=== PATIENT | male | born 1950 | race Caucasian/White ===

== ENCOUNTER 2021-03-21 04:47 | Day surgery (SDC) | payer MEDICARE, OTHER ==
[2021-03-17 19:28] VITALS: BMI 32.6
[2021-03-21] MEDS ORDERED: MIDAZOLAM HCL 2 MG/2 ML SINGLE DOSE VIAL ONE ×2 (10:41→10:45)
[2021-03-21] MEDS ORDERED: oxyCODONE HCL 5 MG TABLET PO PRN (12:09)
[2021-03-21] MEDS ORDERED: ACETAMINOPHEN 325 MG TABLET (FP) PO PRN (12:09)
[2021-03-21] MEDS ORDERED: ONDANSETRON 4 MG/2 ML VIAL IVPUSH PRN (12:09)
[2021-03-21] MEDS ORDERED: LACTATED RINGERS SOLUTION 1,000 ML IV SCH (12:15)
[2021-03-21 14:04] VITALS: BP 123/78; PULSE 78; TEMP 97.9
== END 2021-03-21 12:35 | disposition home or self-care (01) ==
LOC: JASU-SURG 04:47
PROVIDERS: ATTEND Urology
PROC: 0TF4XZZ Fragmentation in Left Kidney Pelvis, External Approach (ICD-10-PCS; principal; 2021-03-21 10:00)
DX: N20.0 Calculus of kidney (principal)
CPT/HCPCS: 82962

== ENCOUNTER 2023-06-13 05:07 | Day surgery (SDC) | payer MEDICARE, OTHER ==
[2023-06-11 08:59] VITALS: BMI 33.7
[~2023-06-13 05:07] MED LIST: ACETAMINOPHEN 325 MG TABLET (FP) PO PRN; BSS (NA/CA/MG/K) BALANCED SALT SOLUTION OPHTH SOLN 15 ML BOTTLE OS ONE; CHONDROITIN SU A/HYALUR SOD 1 KIT IO ONE; LIDOCAINE HCL 1% PRESERVATIVE FREE - 30ML VIAL IO ONE; POVIDONE-IODINE 5% OPHTHALMIC PREP 30 ML SOLUTION OS ONE; TRYPAN BLUE 0.5 ML DISP.SYRIN IO ONE
[2023-06-13] MEDS ORDERED: CYCLOPENTOLATE HCL 1% OPHTH SOLN 2 ML BOTTLE ONE (06:28)
[2023-06-13] MEDS ORDERED: KETOROLAC TROMETHAMINE 0.5% EYE DROP 1 DROP DROPS ONE (06:28)
[2023-06-13] MEDS ORDERED: PHENYLEPHRINE 2.5% OPTHALMIC DROP 2ML BOTTLE ONE (06:28)
[2023-06-13] MEDS ORDERED: OFLOXACIN 0.3% OPHTHALMIC SOLUTION 5 ML BOTTLE ONE (06:28)
[2023-06-13] MEDS ORDERED: TROPICAMIDE 1% OPHTH SOLN 15 ML BOTTLE ONE (06:28)
[2023-06-13] MEDS: PHENYLEPHRINE 2.5% OPHTH SOLN 15 ML BOTTLE OP SCH ×3 (06:50→07:00)
[2023-06-13] MEDS: CYCLOPENTOLATE HCL 1% OPHTH SOLN 2 ML BOTTLE OP SCH ×3 (06:50→07:00)
[2023-06-13] MEDS: TROPICAMIDE 1% OPHTH SOLN 15 ML BOTTLE OP SCH ×3 (06:50→07:00)
[2023-06-13] MEDS: OFLOXACIN 0.3% OPHTHALMIC SOLUTION 5 ML BOTTLE OP SCH ×3 (06:50→07:00)
[2023-06-13] MEDS: KETOROLAC TROMETHAMINE 0.5% EYE DROP 1 DROP DROPS OP SCH ×3 (06:50→07:00)
[2023-06-13] MEDS ORDERED: TETRACAINE 0.5% OPHTH SOLN 2 ML BOTTLE ONE (07:21)
[2023-06-13] MEDS ORDERED: LIDOCAINE HCL/PF 1% SDV 5ML VIAL ONE (07:21)
[2023-06-13] MEDS ORDERED: POVIDONE-IODINE 5% OPHTHALMIC PREP 30 ML SOLUTION ONE (07:21)
[2023-06-13] MEDS ORDERED: ACETYLCHOLINE 1:100 INTRA-OCUL 20 MG/2 ML KIT ONE (07:45)
[2023-06-13] MEDS ORDERED: MIDAZOLAM HCL 2 MG/2 ML SINGLE DOSE VIAL ONE (07:53)
[2023-06-13] MEDS ORDERED: TETRACAINE 0.5% HCL 0.6ML DROPPER.BOTTLE OS ONE (08:07)
[2023-06-13] MEDS ORDERED: POVIDONE-IODINE 5% OPHTHALMIC PREP 30 ML SOLUTION OS ONE (08:08)
[2023-06-13] MEDS ORDERED: LIDOCAINE HCL 1% PRESERVATIVE FREE - 30ML VIAL IO ONE (08:13)
[2023-06-13] MEDS ORDERED: BSS (NA/CA/MG/K) BALANCED SALT SOLUTION OPHTH SOLN 15 ML BOTTLE OS ONE (08:14)
[2023-06-13] MEDS ORDERED: CHONDROITIN SU A/HYALUR SOD 1 KIT IO ONE (08:15)
[2023-06-13] MEDS ORDERED: TRYPAN BLUE 0.5 ML DISP.SYRIN ONE (08:17)
[2023-06-13] MEDS ORDERED: TRYPAN BLUE 0.5 ML DISP.SYRIN IO ONE (08:18)
[2023-06-13] MEDS ORDERED: PHENYLEPHRINE/KETOROLAC 4 ML VIAL IO ONE (08:24)
[2023-06-13 08:53] VITALS: TEMP 97.8
[2023-06-13 09:35] VITALS: BP 129/80; PULSE 77; RESP 18
== END 2023-06-13 09:37 | disposition home or self-care (01) ==
LOC: JASU-SURG 05:07
PROVIDERS: ATTEND Ophthalmology
PROC: 08RK3JZ Replacement of Left Lens with Synthetic Substitute, Percutaneous Approach (ICD-10-PCS; principal; 2023-06-13 07:30)
DX: H26.9 Unspecified cataract (principal)
CPT/HCPCS: 82962; J1097; V2632

== ENCOUNTER 2024-11-18 11:57 | Emergency (ER) | payer MEDICARE, OTHER ==
[2024-11-18 12:14] VITALS: TEMP 99.3; BMI 33.8
[2024-11-18] MEDS ORDERED: ONDANSETRON 4 MG/2 ML VIAL ONE (13:50)
[2024-11-18] MEDS: ONDANSETRON 4 MG/2 ML VIAL IVPB ONE (13:55)
[2024-11-18] MEDS: SODIUM CHLORIDE 500 ML IV STA (13:55)
[2024-11-18 13:57] LABS: BASO % 0.4 % (0-2.0); HEMATOCRIT 35.6 % (35.4-49); HEMOGLOBIN 12.2 GM/dL (11.7-16.9); LYMPH % 17.9 % (8-40); MCH 30.1 pg (25.7-33.7); MCHC 34.4 g/dl (32.0-35.9); MEAN CELL VOLUME 87.5 fl (80-96); MEAN PLT VOLUME 8.5 fl (7.5-11.1); MONO % 12.3 % (3.8-10.2); NEUT % 69.4 % (42.8-82.8); PLATELET COUNT 165 10^3/uL (134-434); RBC 4.07 M/mm3 (4.00-5.60); RDW 13.5 % (11.9-15.9); WHITE BLOOD COUNT 3.4 K/mm3 (4.0-10.0)
[2024-11-18] MEDS ORDERED: ALBUTEROL SO4 2.5/IPRATROPIUM 0.5 INH SOL 3 ML VIAL.NEB. NEB ONE (14:15)
[2024-11-18] MEDS: ALBUTEROL SO4 2.5/IPRATROPIUM 0.5 INH SOL 3 ML VIAL.NEB. NEB ONE (14:18)
[2024-11-18 14:21] LABS: POTASSIUM 3.9 mmol/L (3.5-5.1)
[2024-11-18 14:23] LABS: ALBUMIN 3.6 g/dl (3.4-5.0); BLOOD UREA NITROGEN 30.5 mg/dL (7-18); MAGNESIUM 1.2 mg/dL (1.8-2.4)
[2024-11-18 14:27] LABS: CREATININE 1.7 mg/dL (0.55-1.3)
[2024-11-18 14:28] LABS: BILIRUBIN,TOTAL 0.6 mg/dL (0.2-1); TOT PROT 7.2 g/dl (6.4-8.2)
[2024-11-18] MEDS ORDERED: MAGNESIUM SULFATE IN WATER 2 GM/50 ML IVPB IVPB ONE (15:43)
[2024-11-18] MEDS: MAGNESIUM SULF 50% (8.12 MEQ/2 ML-1 GM VIAL) IVPB ONE (15:50)
[2024-11-18 17:59] VITALS: BP 124/67; PULSE 87; RESP 18
== END 2024-11-18 18:00 | disposition home or self-care (01) ==
LOC: JER 11:57
PROC: 3E033GC Introduction of Other Therapeutic Substance into Peripheral Vein, Percutaneous Approach (ICD-10-PCS; principal; 2024-11-18)
PROC: 3E033GC Introduction of Other Therapeutic Substance into Peripheral Vein, Percutaneous Approach (ICD-10-PCS; 2024-11-18)
PROC: 3E0337Z Introduction of Electrolytic and Water Balance Substance into Peripheral Vein, Percutaneous Approach (ICD-10-PCS; 2024-11-18)
PROC: 3E0F7GC Introduction of Other Therapeutic Substance into Respiratory Tract, Via Natural or Artificial Opening (ICD-10-PCS; 2024-11-18)
DX: J10.1 Influenza due to other identified influenza virus with other respiratory manifestations (principal); R11.2 Nausea with vomiting, unspecified; R05.9 Cough, unspecified; M79.10 Myalgia, unspecified site; R06.02 Shortness of breath; R19.7 Diarrhea, unspecified; Z20.822 Contact with and (suspected) exposure to COVID-19
CPT/HCPCS: 0241U-QW; 36415; 71046-TC-FY; 80053; 83735; 85025; 99284-25